=== PATIENT | female | born 1980 | race Caucasian/White ===

== ENCOUNTER 2017-06-16 11:40 | Emergency (ER) | payer OTHER ==
[2017-06-16 11:51] VITALS: BP 128/90; PULSE 67; RESP 20; TEMP 97.9; O2SAT 100
--- NOTE | 2017-06-16 13:22 | EDPHY ---
H & P Stated Complaint: hx ptsd/loud noise at work causing anxiety and sullivan/denies SI Time Seen by Provider: 06/16/17 13:14 HPI/ROS: CHIEF COMPLAINT: PTSD HISTORY OF PRESENT ILLNESS: Patient is a 36-year-old female with a history of PTSD who is having more frequent headaches which is a symptom of worsening PTSD for her. She recently moved to [place] from [place]. She does not yet have a prescriber here. She takes multiple psychotropic medications including Ativan , Cogentin, Respridal, Zoloft and trazodone. She thinks that her respite all needs to be increased. She denies suicidal or homicidal ideation. She denies recent drug or alcohol abuse. There was a loud noise at work recently which she thinks triggered her worsening symptoms. Her aunt is with her. REVIEW OF SYSTEMS: Constitutional: denies: chills, fever, recent illness, recent injury EENTM: denies: blurred vision, double vision, nose congestion Respiratory: denies: cough, shortness of breath Cardiac: denies: chest pain, irregular heart rate, lightheadedness, palpitations Gastrointestinal/Abdominal: denies: abdominal pain, diarrhea, nausea, vomiting, blood streaked stools Genitourinary: denies: dysuria, frequency, hematuria, pain Musculoskeletal: denies: joint pain, muscle pain Skin: denies: lesions, rash, jaundice, bruising Neurological: denies: headache, numbness, paresthesia, tingling, dizziness, weakness Hematologic/Lymphatic: denies: blood clots, easy bleeding, easy bruising Immunologic/allergic: denies: HIV/AIDS, transplant EXAM: GENERAL: Well-appearing, well-nourished and in no acute distress. HEAD: Atraumatic, normocephalic. EYES: Pupils equal round and reactive to light, extraocular movements intact, sclera anicteric, conjunctiva are normal. ENT: TMs normal, nares patent, oropharynx clear without exudates. Moist mucous membranes. NECK: Normal range of motion, supple without lymphadenopathy or JVD. LUNGS: Breath sounds clear to auscultation bilaterally and equal. No wheezes rales or rhonchi. HEART: Regular rate and rhythm without murmurs, rubs or gallops. ABDOMEN: Soft, nontender, normoactive bowel sounds. No guarding, no rebound. No masses appreciated. BACK: No CVA tenderness, no spinal tenderness, step-offs or deformities EXTREMITIES: Normal range of motion, no pitting or edema. No clubbing or cyanosis. NEUROLOGICAL: Cranial nerves II through XII grossly intact. Normal speech, normal gait. 5/5 strength, normal movement in all extremities, normal sensation PSYCH: Normal mood, normal affect. SKIN: Warm, dry, normal turgor, no visible rashes or lesions. Source: Patient Exam Limitations: No limitations - Personal History LMP (Females 10-55): 15-21 Days Ago Current Tetanus/Diphtheria Vaccine: Unsure - Medical/Surgical History Hx Asthma: No Hx Chronic Respiratory Disease: No Hx Diabetes: No Hx Cardiac Disease: No Hx Renal Disease: No Hx Cirrhosis: No Hx Alcoholism: No Hx HIV/AIDS: No Hx Splenectomy or Spleen Trauma: No Other PMH: panic attacks, c-sec - Family History Significant Family History: No pertinent family hx - Social History Smoking Status: Current every day smoker Alcohol Use: Sober Drug Use: None Constitutional: Initial Vital Signs Temperature (C) 36.6 C 06/16/17 11:48 Heart Rate 67 06/16/17 11:48 Respiratory Rate 20 06/16/17 11:48 Blood Pressure 128/90 H 06/16/17 11:48 O2 Sat (%) 100 06/16/17 11:48 O2 Delivery Mode Room Air Allergies/Adverse Reactions: No Known Allergies Allergy (Verified 06/16/17 11:47) Home Medications: Medication Instructions Recorded LORazepam [Ativan] 1 mg PO Q6-8PRN PRN #10 tab 02/08/16 Cogentin 06/16/17 Risperdal-M 06/16/17 Zoloft 100mg (*) 06/16/17 traZODone 06/16/17 Medical Decision Making ED Course/Re-evaluation: The patient is essentially asymptomatic now but is requesting referral or medication changes. Her aunt says that her medications will run out 2 weeks. Case management has been consulted and they have got her an appointment on Tuesday at the mental health clinic at 2:30 a.m. where she will meet with the prescriber to adjust her medications. They are agreeable with this plan and declines further workup or testing at this time. I will treat her with Toradol for her headache with Differential Diagnosis: Partial list of the Differential diagnosis considered include but were not limited to; depression, anxiety, PTSD, headache and although unlikely based on the history and physical exam, I also considered tumor, infection, trauma. I discussed these differential diagnoses and the plan with the patient as well as the usual and expected course. The patient understands that the diagnosis is provisional and that in medicine we are not always correct and that further workup is often warranted. Usual and customary warnings were given. All of the patient's questions were answered. The patient was instructed to return to the emergency department should the symptoms at all worsen or return, otherwise to followup with the physician as we discussed. - Data Points Medications Given: Discontinued Medications Ketorolac Tromethamine (Toradol) 30 mg IM EDNOW ONE Stop: 06/16/17 14:08 Last Admin: 06/16/17 14:16 Dose: 30 mg Departure - Departure Disposition: Home, Routine, Self-Care Clinical Impression: PTSD (post-traumatic stress disorder) Headache Qualifiers: Headache type: unspecified Headache chronicity pattern: acute headache Intractability: not intractable Qualified Code(s): R51 - Headache Condition: Fair Instructions: Post Traumatic Stress Disorder (ED), Acute Headache (ED) Additional Instructions: You have an appointment at [facility] on June 22 at 2: 45 PM: [facility] [address] [place] [address] Please bring your insurance card, a photo ID, and a list of all your medications with you to your appointment Referrals: NONE *PRIMARY CARE P,. [Primary Care Provider] - As per Instructions [facility] [Clinic] - As per Instructions
[2017-06-16] MEDS ORDERED: KETOROLAC 30 MG/1 ML SDV IM ONE (14:07)
--- NOTE | 2017-06-16 15:15 | ASMTCMCOM ---
CM Note CM Note Notes: Met with patient to discuss follow up care and PCP options Patient has recently returned to [place] after living in [place] for the past year. She has a history of PTSD for which she is taking medication and will need medication refills in the near future. We discussed options for referrrals and patient states that she has been to [facility] in the past and pferefers not to return there. I have offered to [facility] and schedule an appointment for her, to which she agrees. Appointment has been scheduled for patient: June 22 at 2:45 PM. Patient has contacted the clinic as well to confirm that they will be able to prescribe and follow her on the medications she is taking. Patient has been given instructions which include the details of her appointment, as well as the address and phone number. Her appointment is at [facility] at the [place] location. Patient verbalizes understanding and plan for follow up Date Signed: 06/16/2017 03:15 PM Electronically Signed By:Emerald Haque RN
== END 2017-06-16 14:23 | disposition home or self-care (01) ==
DX: F43.10 Post-traumatic stress disorder, unspecified (principal); R51 Headache; F17.200 Nicotine dependence, unspecified, uncomplicated
CPT/HCPCS: 96372; 99284; J1885

== ENCOUNTER 2017-07-20 04:19 | Emergency (ER) | payer OTHER ==
[2017-07-20 04:57] VITALS: TEMP 98.4; O2SAT 94
[2017-07-20 05:51] LABS: PLATELET COUNT 264 10^3/uL (150-400)
--- NOTE | 2017-07-20 06:42 | EDPHY ---
H & P Stated Complaint: SI Source: Patient, Police Exam Limitations: No limitations - Personal History Current Tetanus/Diphtheria Vaccine: Unsure Current Tetanus Diphtheria and Acellular Pertussis (TDAP): Unsure - Medical/Surgical History Hx Asthma: No Hx Chronic Respiratory Disease: No Hx Diabetes: No Hx Cardiac Disease: No Hx Renal Disease: No Hx Cirrhosis: No Hx Alcoholism: No Hx HIV/AIDS: No Hx Splenectomy or Spleen Trauma: No Other PMH: panic attacks, c-sec, PTSD, TBI, seizures - Social History Smoking Status: Current every day smoker Time Seen by Provider: 07/20/17 04:31 HPI/ROS: HPI The patient presents with suicidal ideation, brought in on an M1 hold by police. The patient says that she has a longstanding history of PTSD. She really relocated to [place]. She has had some difficulty obtaining her usual psychiatric medication here and she feels is caused her to deteriorate. She says she has lost her will to live. She says her head is full of bad thoughts. She does not have a plan to hurt her lately. He was seen in the emergency department on June 16. She was given an appointment at [facility] for June 22. She went to the appointment, however because she refused to see [facility], they did not prescribe medication for her. However, she she has been on Ativan and Risperdal, though ran out around July 04. REVIEW OF SYSTEMS Constitutional: No fever, no chills. Eyes: No discharge. ENT: No sore throat. Cardiovascular: No chest pain, no palpitations. Respiratory: No cough, no shortness of breath. Gastrointestinal: No abdominal pain, no vomiting. Genitourinary: No hematuria. Musculoskeletal: No back pain. Skin: No rashes. Neurological: No headache. PMHx: PTSD Soc Hx: Previously living in [place], recently relocated to [place], works at a job, a total marijuana use, tobacco use PHYSICAL General Appearance: Alert, no distress Eyes: Pupils equal and round no pallor or injection ENT, Mouth: Mucous membranes moist Respiratory: There are no retractions, lungs are clear to auscultation Cardiovascular: Regular rate and rhythm Gastrointestinal: Abdomen is soft and non-tender, no masses, bowel sounds normal Neurological: A&O, moves all extremities Skin: Warm and dry, no rashes Musculoskeletal: Neck is supple non tender Extremities: symmetrical, full range of motion Psychiatric: Patient is oriented X 3, there is no agitation (Gisela Gorman) Constitutional: Initial Vital Signs Temperature (C) 36.9 C 07/20/17 04:55 Heart Rate 53 L 07/20/17 04:55 Respiratory Rate 14 07/20/17 04:55 Blood Pressure 129/79 H 07/20/17 04:55 O2 Sat (%) 94 07/20/17 04:55 O2 Delivery Mode Room Air Allergies/Adverse Reactions: No Known Allergies Allergy (Verified 06/16/17 11:47) Home Medications: Medication Instructions Recorded LORazepam [Ativan] 1 mg PO Q6-8PRN PRN #10 tab 02/08/16 Cogentin 06/16/17 Risperdal-M 06/16/17 Zoloft 100mg (*) 06/16/17 traZODone 06/16/17 Medical Decision Making Differential Diagnosis: This is a 36-year-old female, history of PTSD, who presents from home, brought in by police on an M1 hold for suicidal ideation. Here he has passive suicidality without active plan. She does have prior history of suicide attempts in the past. She is off of medications, which is likely contributing to her current symptoms. However, we would not prescribe these room the emergency department. Plan for basic labs, maintain M1 hold, mental health evaluation. 7:00 a.m.- Case is signed out to Dr. Barfield at change of shift pending mental evaluation. (Gisela Gorman) 11:20 a.m. the patient has been evaluated by Mental Health. They feel that she is safe to release. She has good follow-up. She declines further workup or testing. (Jarocho Barfield) - Data Points Laboratory Results: Laboratory Results 07/20/17 04:32 07/20/17 04:32 Departure - Departure Disposition: Home, Routine, Self-Care Clinical Impression: Suicidal ideation Condition: Fair Instructions: Suicide Prevention for Adults (ED) Additional Instructions: You are established at [facility] in [place]. You can call anytime to schedule an appointment: [address] [address] IF you would like to transfer your care to [facility], you may call and make this request. It will take up to 2 weeks to transfer care so the sooner you call, the sooner this will happen. The [address] [address] Referrals: NONE *PRIMARY CARE P,. [Primary Care Provider] - As per Instructions [facility] [Clinic] - As per Instructions
[2017-07-20 10:08] VITALS: BP 113/62; PULSE 75; RESP 16
--- NOTE | 2017-07-20 11:42 | ASMTCMCOM ---
CM Note CM Note Notes: Patient in the ER and pending medical clearance per [facility]. Patient had follow up appointment on 06/22/17 at [facility] which this CM had scheduled for her during her last ER visit. Although patient did follow up with this appointment, she is now requesting a "different" PCP referral "because I do not want to see [facility]" I have explained to patient that [facility] is NOT [facility], although they do coordinate patient care. I have provided pt. with the contact information for [facility] and told her that she can call and request to have her care transferred but that this process will take up to 2 weeks. I encouraged her to follow up with [facility] in the meantime if she is in need of medications, etc. She verbalizes understanding I have spoken with Beverly at [facility] and informed her of patient's desire to transfer care. Beverly confirms process as I have explained it to the patient Date Signed: 07/20/2017 11:41 AM Electronically Signed By:Emerald Haque RN
== END 2017-07-20 11:31 | disposition home or self-care (01) ==
LOC: EDUNIT# → UNDOADMIN 06:48
DX: R45.851 Suicidal ideations (principal); F17.200 Nicotine dependence, unspecified, uncomplicated
CPT/HCPCS: 80305; G0480